=== PATIENT | female | born 1975 | race Hispanic/Latino ===

== ENCOUNTER 2017-09-15 16:35 | Inpatient (IN) | payer OTHER ==
[2017-09-15 16:48] VITALS: BMI 33.5
--- NOTE | 2017-09-15 19:54 | OBADHP ---
Datetime: 09/15/2017 19:43 Admit Comment, IP Provider: Term , GBS negative. SROM x 5 hours. Allergy to Levaquin. NST r eactive @1745. GDM diet controlled. Admit to labor _ delivery. Order CBC, Type and Rh. EFM continous per protocol. PO diet and fluids as tolerated. Ambulate. Tub PRN. Anticipate . Pelvic Type - PN: Adequate Extremities - PN: Normal Abdomen - PN: Normal Back - PN: Normal Breast - PN: Normal Lungs - PN: Normal Heart - PN: Normal Thyroid - PN: Normal Neurologic - PN: Normal HEENT - PN: Normal General - PN: Normal Amniotic Fluid Color, Provider: Clear Membranes, Provider: Ruptured Contraction Comments Provider: q5 IP Hx Assessment: The History has been Reviewed and is Current Vital Signs Provider: Reviewed IP Chief Complaint: Uterine contractions; Suspected ruptured membranes Dilatation, Provider: 2 Effacement, Provider: 40 Station, Provider: -3 Genitourinary Exam: Normal DTRs - PN: Normal EGA AdmitDate IP: 39.1 IP Adm Impression: Term, intrauterine IP Admit Plan: Admit to unit; Initiate labor protocol
[2017-09-15 20:30] LABS: BASO % 0.2 % (0.0-2.0); EOS % 0.2 % (0.0-4.0); HEMOGLOBIN 12.6 g/dL (12.0-16.0); LYMPH # 1.8 K/uL (1.0-4.3); LYMPH % 12.2 % (20.0-40.0); MEAN CELL VOLUME 86.1 fl (81.0-99.0); MEAN CORPUSCULAR HEMOGLOBIN 28.5 pg (27.0-31.0); MEAN CORPUSCULAR HGB CONC 33.1 g/dL (33.0-37.0); MEAN PLATELET VOLUME 10.5 fl (7.2-11.7); MONO # 0.7 K/uL (0.0-0.8); NEUT # 11.9 K/uL (1.8-7.0); NEUT % 82.4 % (50.0-75.0); NRBC % 0.1 % (0.0-0.0); RBC 4.43 Mil/uL (3.80-5.20); RED CELL DISTRIBUTION WIDTH 14.8 % (11.5-14.5); WHITE BLOOD COUNT 14.5 K/uL (4.8-10.8)
[2017-09-15 20:40] LABS: ALB/GLOB RATIO 1.1 (1.0-2.1); ALBUMIN 3.9 g/dL (3.5-5.0); ALT/SGPT 38 U/L (9-52); AMYLASE 71 U/L (30-110); AST/SGOT 21 U/L (14-36); BLOOD UREA NITROGEN 11 mg/dl (7-17); CALCIUM 9.2 mg/dL (8.4-10.2); GFR AFRICAN-AMERICAN > 60; GFR NON-AFRICAN AMERICAN > 60; LIPASE 130 U/L (23-300); URIC ACID 5.4 mg/Dl (2.2-7.5)
--- NOTE | 2017-09-15 23:06 | OBPN ---
Datetime: 09/15/2017 23:01 IP Progress Impression: Normal progression of labor; Reassuring heart rate IP Progress Plan: Continue present management FHR - Baseline A Provider: 150 IP Progress Note Comment: Pt ambulating. Discussed coping strategies for labor contractions such as shower. Pt may consider. Vital Signs Provider: Reviewed; Within Normal Limits Datetime: 09/15/2017 19:43 Membranes, Provider: Ruptured Amniotic Fluid Color, Provider: Clear Contraction Comments Provider: q5 Dilatation, Provider: 2 Effacement, Provider: 40 Station, Provider: -3
[2017-09-16] MEDS ORDERED: Oxytocin 10 Units/ml Inj ONE (00:19)
--- NOTE | 2017-09-16 00:54 | OBPN ---
Datetime: 09/16/2017 00:49 IP Progress Plan: Continue present management IP Fetus A Comments: intermittent auscultation, FHT's 136 IP Progress Note Comment: sitting on ball Dilatation, Provider: 6 Effacement, Provider: 80 Station, Provider: -3
[2017-09-16] MEDS ORDERED: Oxycodone/Acetaminophen 5/325 mg Tab PO PRN ×4 (03:12→04:28)
[2017-09-16] MEDS ORDERED: Benzocaine/Menthol SPRAY TOP PRN ×2 (03:12→04:28)
--- NOTE | 2017-09-16 03:24 | OBPN ---
Datetime: 09/16/2017 02:00 IP Progress Impression: Normal progression of labor; Reassuring heart rate IP Informed Consent Obtain: Vaginal Delivery Contraction Comments Provider: Q2 IP Fetus A Comments: fht's 132 IP Progress Note Comment: patient in tub, using Nitrous oxide woth each contraction. urge to push Dilatation, Provider: 10 Station, Provider: 0 Datetime: 09/16/2017 01:00 IP Progress Plan: Continue present management
--- NOTE | 2017-09-16 03:26 | OBPN ---
Datetime: 09/16/2017 01:00 IP Fetus A Comments: fht's 133 IP Progress Note Comment: contractions following exam now every 3-4 minutes. much stronger. patien t into tub
--- NOTE | 2017-09-16 03:33 | OBDS ---
DELIVERY PERSONNEL Nurse Iron Worker Certified: Jade Jacob CNM Delivery Doctor: Jade Jacob CNM Manager Shipping: Binta Savage RN MATERNAL INFORMATION Delivery Anesthesia: None Estimated Blood Loss (ml): 100 Placenta Cultured: No Maternal Complications: None Provider Comments: progressed quickly to of viable male over intact perineum.Waterbirth. baby with spontaneous cry. Apgars 8 and 9. Placenta delivered spontaneously and intact. ebl 100cc. baby with parents to jaeger., LABOR SUMMARY EDC: 09/21/2017 00:00 No. Babies in Womb: 1 Attempted: No Labor Anesthesia: None LABOR INFORMATION Onset of Labor: 09/16/2017 00:00 Complete Dilatation: 09/16/2017 02:05 Oxytocin: N/A Group B Beta Strep: Negative Steroids Given: None Reason Steroids Not Administered: Not Applicable MEMBRANES Membranes Rupture Method: Spontaneous Rupture of Membranes: 09/15/2017 15:00 Length of Rupture (hrs): 11.45 Amniotic Fluid Color: Clear Amniotic Fluid Amount: Large Amniotic Fluid Odor: Normal STAGES OF LABOR Stage 1 hrs: 2 Stage 1 min: 5 Stage 2 hrs: 0 Stage 2 min: 22 Stage 3 hrs: 0 Stage 3 min: 19 Total Time in Labor hrs: 2 Total Time in Labor min: 46 VAGINAL DELIVERY Episiotomy: None Laceration Extension: N/A Laceration Type: None Laceration Repair: Not Applicable Initial Vag Sponge Count: 5 Final Vag Sponge Count: 5 Initial Vag Sharps Count: 0 Final Vag Sharps Count: 0 Sponge Count Correct: N/A Sharps Count Correct: No BABY A INFORMATION Infant Delivery Date/Time: 09/16/2017 02:27 Method of Delivery: Vaginal Born in Route : No : N/A Forceps: N/A Vacuum Extraction: N/A Shoulder Dystocia : No SHOULDER DYSTOCIA BABY A Infant Delivery Date/Time: 09/16/2017 02:27 PRESENTATION/POSITION BABY A Presentation: Cephalic Cephalic Presentation: Vertex PLACENTA INFORMATION BABY A Placenta Delivery Time : 09/16/2017 02:46 Placenta Method of Delivery: Spontaneous Placenta Status: Delivered SCORES BABY A Heart Rate 1 min: >100 bpm Resp Effort 1 min: Good Cry Reflex Irritability 1 min: Cough or Sneeze or Pulls Away Muscle Tone 1 min: Active Motion Color 1 min: Body [place] Central, Extremities Blue Resuscitation Effort 1 min: Tactile Stimulation SCORE 1 MIN: 9 Heart Rate 5 min: >100 bpm Resp Effort 5 min: Good Cry Reflex Irritability 5 min: Cough or Sneeze or Pulls Away Muscle Tone 5 min: Active Motion Color 5 min: Body [place] Central, Extremities Blue Resuscitation Effort 5 min: Tactile Stimulation SCORE 5 MIN: 9 INFANT INFORMATION BABY A Gestational Age at Delivery: 39.2 Gestational Status: Term Infant Outcome : Liveborn Infant Condition : Stable Infant Sex: Male IDENTIFICATION/MEDS BABY A ID Band Number: [id number] ID Band Location: Left Leg; Left Arm Erythromycin Given: Deferred by Parents CORD INFORMATION BABY A No. Cord Vessels: 3 Nuchal Cord : N/A Cord Blood Taken: Yes Suction: None
[2017-09-16] MEDS: Multivitamin With Minerals Tab PO SCH (08:40)
[2017-09-16] MEDS ORDERED: Multivitamin With Minerals Tab PO SCH (09:00)
[2017-09-17 06:35] LABS: HEMOGLOBIN 10.9 g/dL (12.0-16.0); MEAN CELL VOLUME 87.1 fl (81.0-99.0); MEAN CORPUSCULAR HEMOGLOBIN 28.2 pg (27.0-31.0); MEAN CORPUSCULAR HGB CONC 32.4 g/dL (33.0-37.0); RBC 3.88 Mil/uL (3.80-5.20); RED CELL DISTRIBUTION WIDTH 14.8 % (11.5-14.5); WHITE BLOOD COUNT 14.4 K/uL (4.8-10.8)
--- NOTE | 2017-09-17 09:48 | OBPPN ---
Datetime: 09/17/2017 09:45 PP Pain Prov: Within normal limits PP Nausea Prov: Denies PP Flatus Prov: Yes PP BM Prov: No PP Breasts Prov: Normal PP Heart Prov: Normal PP Lungs Prov: Normal PP Abdomen/Uterus Prov: Normal PP Lochia Prov: Normal PP Vulva/Perineum Prov: Normal PP CVA Tenderness Prov: Normal PP Extremities Prov: Normal PP Impression Prov: Normal progression PP Plan Prov: Continue present management; Discharge PP Plan Other Prov: D/C in AM PP Progress Note Prov: Patient states on demand when feeding cues present and no andre rns with latch. Lochia is WNL. Counseled on s/s of mastitis and PPD and when to call. Pt to f/u in 1- 2 weeks PP at office and again at 6 weeks PP. Pt to call with any questions or concerns. IP PP Procedures: None Vital Signs Provider PP: Reviewed
--- NOTE | 2017-09-17 09:50 | OBDCSUM ---
Datetime: 09/17/2017 09:48 Discharged to, Provider: Home Follow up at, Provider: JENAE Disch Instr Activity: Normal activity Disch Instr Diet: Regular Discharge Instructions, Provider: Routine instructions given Discharge Diagnosis, Provider: Term Delivered Discharge Time: 09/18/2017 11:00 Follow up in weeks, Provider: 1-2 weeks Disch Referrals: None Contraception discussed, Prov: No Disch Activity Restrictions: No lifting; Minimize stair-climbing; No sexual activity; Nothing in vag marcia - [place], tampons, douche Discharge Comment, Provider: Pt to minimize activity for first 1-2 weeks. Refrain from sexual activi ty for first 6 weeks. To come for routine PP visit in 1-2 weeks to office. Pt to call to schedule. Ca ll with any questions or concerns.
[2017-09-17] MEDS: Multivitamin With Minerals Tab PO SCH (10:05)
[2017-09-18] MEDS: Multivitamin With Minerals Tab PO SCH (08:53)
[2017-09-18] MEDS ORDERED: Tdap Vaccine 0.5 ml Vial (10-64 yrs) IM ONE (09:00)
[2017-09-18 21:13] VITALS: BP 136/82; PULSE 105; RESP 20; TEMP 98
== END 2017-09-18 15:45 | disposition home or self-care (01) | DRG 775 ==
LOC: H.EROB2 16:35 → H.L&D 19:27 → H.OB/GYN 09-16 04:20
PROVIDERS: ADMIT Advanced Practice Midwife; ATTEND Advanced Practice Midwife
PROC: 10E0XZZ Delivery of Products of Conception, External Approach (ICD-10-PCS; principal; 2017-09-15)
PROC: 4A1HXCZ Monitoring of Products of Conception, Cardiac Rate, External Approach (ICD-10-PCS; 2017-09-15)
DX: O24.420 Gestational diabetes mellitus in childbirth, diet controlled (principal); Z37.0 Single live birth; Z3A.39 39 weeks gestation of pregnancy; Z88.1 Allergy status to other antibiotic agents